=== PATIENT | male | born 1960 | race Caucasian/White ===

== ENCOUNTER 2016-07-02 07:02 | Emergency (ER) | payer BC, OTHER ==
[2016-07-02 07:30] VITALS: BP 168/69
--- NOTE | 2016-07-02 08:15 | UC ---
Abdominal Pain Male HPI - HPI Summary HPI Summary: LLQ pain x 5 days, now radiating to his entire lower abd and RLQ. Pt with hx "diverticulitis" "3-4 times per year", but he doesn't generally seek med attention for it. Pt with hx DM, psoriasis on immunotherapy, and rapid HR treated by Dr. Borja, and multiple kidney stones s/p lithotripsy and stents under care of Dr. Mahoney on HCTZ and allopurinol. 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 Pt did take ibuprofen with minimal relief. - History of Current Complaint Chief Complaint: UCGI Stated Complaint: ABD PAIN Time Seen by Provider: 07/02/16 07:20 Hx Obtained From: Patient Onset/Duration: Gradual Onset, Lasting Days, Still Present Timing: Constant Severity Initially: Moderate Severity Currently: Moderate Pain Intensity: 5 Pain Scale Used: 0-10 Numeric Location: Discrete At: RLQ, Discrete At: LLQ, Suprapubic Radiates: Yes Radiates to: RLQ Character: Aching Aggravating Factor(s):: Movement Alleviating Factor(s): Nothing Associated Signs And Symptoms: Negative: Urinary Symptoms - Risk Factors Testicular Torsion: Negative Cardiac Risk Factors: Hypertension, Smoking, Diabetes - Allergies/Home Medications Allergies/Adverse Reactions: Allergies Allergy/AdvReac Type Severity Reaction Status Date / Time Simvastatin [From Zocor] AdvReac Intermediate Muscle Ache Verified 07/02/16 09: 23 Ezetimibe [From Vytorin] AdvReac Unknown Unknown Verified 07/02/16 09:23 Reaction Details Rosuvastatin [From Crestor] AdvReac Unknown Unknown Verified 07/02/16 09:23 Reaction Details Home Medications: Home Medications Stalera 45 mg SUBCUT SEE INSTRUCTIONS 07/02/16 [History] glipiZIDE TAB* [Glucotrol TAB*] 5 mg PO DAILY 07/02/16 [History Confirmed ] PMH/Surg Hx/FS Hx/Imm Hx Endocrine History Of: Reports: Diabetes - oral meds Cardiovascular History Of: Reports: Cardiac Disorders - rapid heart rate & cautery, Hypertension, Myocardial Infarction GI/ History Of: Reports: Kidney Stones, Diverticulitis - Surgical History Surgical History: Yes Surgery Procedure, Year, and Place: 11/1999 [facility] [place] (right) ureteral stent, cystocscopy, lithotripsy, 02/2001 [facility] [place] (right) ureteral stent, cystocscopy, 2001 [facility] [place] (right) ureteral stent, cystocscopy, lithotripsy, 07/2008 [facility] [place] (right) carpal tunnel & (right) ring trigger finger release - Family History Known Family History: Positive: Other - diverticular disease - Social History Occupation: Employed Full-time Lives: With Family Alcohol Use: Rare Substance Use Type: None Smoking Status (MU): Former Smoker When Did the Patient Quit Smoking/Using Tobacco: 4-5 years ago Review of Systems Constitutional: Negative Skin: Negative Eyes: Negative ENT: Negative Respiratory: Negative Cardiovascular: Negative Gastrointestinal: Abdominal Pain Genitourinary: Negative Motor: Negative Neurovascular: Negative Musculoskeletal: Negative Neurological: Negative Psychological: Negative All Other Systems Reviewed And Are Negative: Yes Physical Exam Triage Information Reviewed: Yes Appearance: Ill-Appearing, Pain Distress, Obese Vital Signs: Initial Vital Signs Temp 99.2 F 07/02/16 07:07 Pulse 116 07/02/16 07:07 Resp 18 07/02/16 07:07 BP 168/69 07/02/16 07:07 tachycardia noted Vital Signs Reviewed: Yes Eyes: Positive: Conjunctiva Clear ENT: Positive: Normal ENT inspection Neck: Positive: Supple Respiratory: Positive: Lungs clear, Normal breath sounds, No respiratory distress Cardiovascular: Positive: No Murmur, Pulses Normal, Brisk Capillary Refill, Tachycardia Abdomen Description: Positive: Soft, Guarding - LLQ. Negative: CVA Tenderness ( R), CVA Tenderness (L), Distended Abd Pain Male Course/Dx - Course Course Of Treatment: pt with LLQ pain and McBurney's point tenderness, hx diverticulitis and multiple kidney stones. Pt needs higher level of care to get definitive diagnosis. - Differential Dx/Clinical Impression Differential Diagnosis/HQI/PQRI: Appendicitis, Constipation, Diverticulitis, Pancreatitis, Ureteral Stone, Urinary Tract Infection Provider Diagnoses: LLQ abd pain Discharge - Discharge Plan Condition: Stable Disposition: AGAINST MEDICAL ADVICE Referrals: Jack Andrews DO [Primary Care Provider] -
== END 2016-07-02 07:51 | disposition left against medical advice (07) ==
LOC: UCCORT 07:02
DX: R10.32 Left lower quadrant pain (principal); R10.31 Right lower quadrant pain; Z87.442 Personal history of urinary calculi; E11.9 Type 2 diabetes mellitus without complications; Z79.84 Long term (current) use of oral hypoglycemic drugs; Z88.8 Allergy status to other drugs, medicaments and biological substances; Z87.891 Personal history of nicotine dependence
CPT/HCPCS: 99212; G0463

== ENCOUNTER 2016-07-02 09:17 | Emergency (ER) | payer OTHER ==
[2016-07-02] MEDS ORDERED: Ketorolac INJ* 30 MG/ML 1 ML VIAL IV ONE (10:19)
[2016-07-02 10:28] VITALS: BP 158/66
[2016-07-02 10:30] LABS: Hematocrit 46 % (42-52); Hemoglobin 14.9 g/dl (14.0-18.0); Mean Corpuscular HGB Conc 33 g/dl (31-36); Mean Corpuscular Hemoglobin 30 pg (27-31); Mean Corpuscular Volume 90 fL (80-94); Mean Platelet Volume 9 um3 (7.4-10.4); Red Blood Count 5.04 10^6/ul (4.0-5.4); Red Cell Distribution Width 15 % (10.5-15); White Blood Count 19.5 10^3/ul (3.5-10.8)
[2016-07-02 10:31] LABS: Add Diff/Slide Review? Slide Review Added; Comments Flag Yes
[2016-07-02 10:37] LABS: Urine Bacteria Absent (Absent); Urine Bilirubin Negative (Negative); Urine Glucose 1+(50 mg/dL) (Negative); Urine Nitrite Negative (Negative)
[2016-07-02 10:43] LABS: BUN/Creatinine Ratio 11.5 (8-20); C Reactive Protein 149.55 mg/L (< 5.00); Calcium 9.5 mg/dL (8.6-10.3); EGFR Non-African American 73.9 (>60); Globulin 3.6 g/dL (2-4); Total Bilirubin 0.4 mg/dL (0.2-1.0); Total Protein 7.6 g/dL (6.4-8.9)
--- NOTE | 2016-07-02 10:54 | RAD ---
CLINICAL HISTORY: Left flank pain COMPARISON: July 30, 2011 TECHNIQUE: Multiple contiguous axial CT scans were obtained of the abdomen and pelvis, without intravenous contrast enhancement. Coronal and sagittal multiplanar reformations are submitted for review. Oral contrast was not administered. FINDINGS: The study is limited by the lack of intravenous contrast. This limits evaluation of the solid organs and vasculature. LUNG BASES: The lung bases are clear. LIVER: The liver is diffusely low in attenuation compared to the spleen. There are no focal hepatic parenchymal masses. The liver is enlarged measuring 22 cm in long axis. BILE DUCTS: There is no intrahepatic or extrahepatic biliary dilatation. GALLBLADDER: The gallbladder is normal, without pericholecystic inflammatory change. PANCREAS: The pancreas is normal, without mass or ductal dilatation. SPLEEN: Normal in size and appearance. UPPER GI TRACT: Evaluation of the gastrointestinal tract is limited by incomplete gastric distention. There is a small sliding hiatal hernia. SMALL BOWEL AND MESENTERY: The small bowel is normal in contour, course, and caliber. There is no obstruction or dilatation. COLON: There is diverticulosis of the descending and sigmoid colon with extensive stranding of the pericolonic fat along the sigmoid colon. There is a questionable low-attenuation lesion measuring 1.1 cm in the wall of the sigmoid colon. ADRENALS: Normal bilaterally. KIDNEYS: The right renal cyst is noted. There is dystrophic calcification of the right kidney. There is no appreciable hydronephrosis or ureteral calculus. BLADDER: The bladder is smooth in contour. PELVIC ORGANS: The prostate is diffusely enlarged. The seminal vesicles are symmetric. AORTA: There is calcific atherosclerotic disease of the abdominal aorta and its branches, without aneurysmal dilatation IVC: Unremarkable LYMPH NODES: There is no lymphadenopathy by size criteria. ABDOMINAL WALL: There is no evidence for abdominal wall hernia. BONES AND SOFT TISSUES: Degenerative changes are noted along the spine OTHER: None IMPRESSION: 1. DIVERTICULITIS. 2. THERE IS A QUESTIONABLE 1.1 CM FLUID COLLECTION OF THE WALL OF THE SIGMOID COLON WHICH MAY REPRESENT A SMALL ABSCESS, THOUGH EVALUATION IS LIMITED BY LACK OF INTRAVENOUS CONTRAST. 3. HEPATOMEGALY WITH FATTY INFILTRATION OF THE LIVER
--- NOTE | 2016-07-04 09:12 | ED ---
Kenny Aguilar Benjamin, scribed for Chico Bravo MD on 07/02/16 at 1018 . Abdominal Pain/Male - HPI Summary HPI Summary: 56yo male comes from [facility], c/o LLQ abd pain radiating diffusely throughout his lower abdomen for 3-4 days. Pt also reports some pain on Lt flank as well. Denies nausea or vomiting. Pt took ibuprofen for pain and states that it does help with his pain somewhat. Hx of diverticulitis. - History of Current Complaint Chief Complaint: EDAbdPain Stated Complaint: LOWER LT ABD PAIN Time Seen by Provider: 07/02/16 10:04 Hx Obtained From: Patient Onset/Duration: Gradual Onset, Lasting Days - 3-4 days, Still Present Timing: Constant Severity Initially: Mild Severity Currently: Mild Pain Intensity: 3 Pain Scale Used: 0-10 Numeric Location: Discrete At: LLQ Radiates: Yes Radiates to: Flank - Left, RLQ Aggravating Factor(s): Nothing Alleviating Factor(s): Nothing Associated Signs And Symptoms: Positive: Negative. Negative: Nausea - Allergies/Home Medications Allergies/Adverse Reactions: Allergies Allergy/AdvReac Type Severity Reaction Status Date / Time Simvastatin [From Zocor] AdvReac Intermediate Muscle Ache Verified 07/02/16 09: 23 Ezetimibe [From Vytorin] AdvReac Unknown Unknown Verified 07/02/16 09:23 Reaction Details Rosuvastatin [From Crestor] AdvReac Unknown Unknown Verified 07/02/16 09:23 Reaction Details PMH/Surg Hx/FS Hx/Imm Hx Endocrine/Hematology History: Reports: Hx Diabetes - oral meds Cardiovascular History: Reports: Hx Angina, Hx Coronary Artery Disease, Hx Hypercholesterolemia, Hx Myocardial Infarction, Other Cardiovascular Problems/ Disorders Denies: Hx Hypertension Respiratory History: Reports: Hx Sleep Apnea - suspect; evaluation 02/2013, Other Respiratory Problems/Disorders - hypoxemia History: Reports: Hx Kidney Stones, Other Problems/Disorders - (right) side ureteral stent Musculoskeletal History: Reports: Other Musculoskeletal History - obesity - Surgical History Surgery Procedure, Year, and Place: 11/1999 [place] (right) ureteral stent, cystocscopy, lithotripsy, 02/2001 [place] (right) ureteral stent, cystocscopy, 2001 [place] (right) ureteral stent, cystocscopy, lithotripsy, 07/2008 [facility] (right) carpal tunnel & (right) ring trigger finger release Infectious Disease History: No Infectious Disease History: Denies: Traveled Outside the [place] in Last 30 Days - Family History Known Family History: Negative: Cardiac Disease, Hypertension, Diabetes - Social History Occupation: Employed Full-time Lives: With Family Alcohol Use: Rare Substance Use Type: Reports: None Smoking Status (MU): Former Smoker Review of Systems Constitutional: Negative Eyes: Negative ENT: Negative Cardiovascular: Negative Respiratory: Negative Positive: Abdominal Pain - diffusely but mostly in LLQ. Negative: Vomiting, Diarrhea, Nausea Genitourinary: Negative Musculoskeletal: Negative Skin: Negative Neurological: Negative Psychological: Normal All Other Systems Reviewed And Are Negative: Yes Physical Exam Vital Signs On Initial Exam: Initial Vitals Temp Pulse Resp BP Pulse Ox 99.0 F 108 16 139/83 96 07/02/16 09:23 07/02/16 09:23 07/02/16 09:23 07/02/16 09:23 07/02/16 09:23 Appearance: Positive: Well-Appearing, No Pain Distress, Obese Skin: Positive: Warm, Skin Color Reflects Adequate Perfusion, Dry Head/Face: Positive: Normal Head/Face Inspection Eyes: Positive: Normal ENT: Positive: Normal ENT inspection Neck: Positive: Supple, Nontender Respiratory/Lung Sounds: Positive: Clear to Auscultation, Breath Sounds Present Cardiovascular: Positive: RRR Abdomen Description: Positive: Soft, Other: - diffuse abdominal tenderness but mostly in LLQ. Bowel Sounds: Positive: Present Musculoskeletal: Positive: Normal, Strength/ROM Intact Neurological: Positive: Normal, Sensory/Motor Intact, Alert, Oriented to Person Place, Time, CN Intact II-III Psychiatric: Positive: Affect/Mood Appropriate Diagnostics - Vital Signs Vital Signs Temp Pulse Resp BP Pulse Ox 07/02/16 09:23 99.0 F 108 16 139/83 96 - Laboratory Lab Results: Lab Results 07/02/16 07/02/16 07/02/16 Range/Units 09:50 09:50 09:50 WBC 19.5 H (3.5-10.8) 10^3/ul RBC 5.04 (4.0-5.4) 10^6/ul Hgb 14.9 (14.0-18.0) g/dl Hct 46 (42-52) % MCV 90 (80-94) fL MCH 30 (27-31) pg MCHC 33 (31-36) g/dl RDW 15 (10.5-15) % Plt Count 214 (150-450) 10^3/ul MPV 9 (7.4-10.4) um3 Neut % (Auto) 73.3 (38-83) % Lymph % (Auto) 14.8 L (25-47) % [place] % (Auto) 10.2 H (1-9) % Eos % (Auto) 1.0 (0-6) % Baso % (Auto) 0.7 (0-2) % Absolute Neuts (auto) 14.3 H (1.5-7.7) 10^3/ul Absolute Lymphs (auto) 2.9 (1.0-4.8) 10^3/ul Absolute Monos (auto) 2.0 H (0-0.8) 10^3/ul Absolute Eos (auto) 0.2 (0-0.6) 10^3/ul Absolute Basos (auto) 0.1 (0-0.2) 10^3/ul Absolute Nucleated RBC 0.05 10^3/ul Nucleated RBC % 0.2 Sodium 133 (133-145) mmol/L Potassium 4.0 (3.5-5.0) mmol/L Chloride 100 L (101-111) mmol/L Carbon Dioxide 24 (22-32) mmol/L Anion Gap 9 (2-11) mmol/L BUN 12 (6-24) mg/dL Creatinine 1.04 (0.67-1.17) mg/dL Est GFR ( Amer) 95.0 (>60) Est GFR (Non-Af Amer) 73.9 (>60) BUN/Creatinine Ratio 11.5 (8-20) Glucose 205 H (70-100) mg/dL Lactic Acid 2.1 H* (0.5-2.0) mmol/L Calcium 9.5 (8.6-10.3) mg/dL Total Bilirubin 0.40 (0.2-1.0) mg/dL AST 14 (13-39) U/L ALT 14 (7-52) U/L Alkaline Phosphatase 62 (34-104) U/L C-Reactive Protein 149.55 H (< 5.00) mg/L Total Protein 7.6 (6.4-8.9) g/dL Albumin 4.0 (3.2-5.2) g/dL Globulin 3.6 (2-4) g/dL Albumin/Globulin Ratio 1.1 (1-3) Lipase 34 (11.0-82.0) U/L Urine Color Urine Appearance Urine pH (5-9) Ur Specific [place] (1.010-1.030) Urine Protein (Negative) Urine Ketones (Negative) Urine Blood (Negative) Urine Nitrate (Negative) Urine Bilirubin (Negative) Urine Urobilinogen (Negative) Ur Leukocyte Esterase (Negative) Urine WBC (Auto) (Absent) Urine RBC (Auto) (Absent) Ur Squamous Epith Cells (Absent) Urine Bacteria (Absent) Urine Glucose (Negative) 07/02/16 Range/Units 10:10 WBC (3.5-10.8) 10^3/ul RBC (4.0-5.4) 10^6/ul Hgb (14.0-18.0) g/dl Hct (42-52) % MCV (80-94) fL MCH (27-31) pg MCHC (31-36) g/dl RDW (10.5-15) % Plt Count (150-450) 10^3/ul MPV (7.4-10.4) um3 Neut % (Auto) (38-83) % Lymph % (Auto) (25-47) % [place] % (Auto) (1-9) % Eos % (Auto) (0-6) % Baso % (Auto) (0-2) % Absolute Neuts (auto) (1.5-7.7) 10^3/ul Absolute Lymphs (auto) (1.0-4.8) 10^3/ul Absolute Monos (auto) (0-0.8) 10^3/ul Absolute Eos (auto) (0-0.6) 10^3/ul Absolute Basos (auto) (0-0.2) 10^3/ul Absolute Nucleated RBC 10^3/ul Nucleated RBC % Sodium (133-145) mmol/L Potassium (3.5-5.0) mmol/L Chloride (101-111) mmol/L Carbon Dioxide (22-32) mmol/L Anion Gap (2-11) mmol/L BUN (6-24) mg/dL Creatinine (0.67-1.17) mg/dL Est GFR ( Amer) (>60) Est GFR (Non-Af Amer) (>60) BUN/Creatinine Ratio (8-20) Glucose (70-100) mg/dL Lactic Acid (0.5-2.0) mmol/L Calcium (8.6-10.3) mg/dL Total Bilirubin (0.2-1.0) mg/dL AST (13-39) U/L ALT (7-52) U/L Alkaline Phosphatase (34-104) U/L C-Reactive Protein (< 5.00) mg/L Total Protein (6.4-8.9) g/dL Albumin (3.2-5.2) g/dL Globulin (2-4) g/dL Albumin/Globulin Ratio (1-3) Lipase (11.0-82.0) U/L Urine Color Yellow Urine Appearance Clear Urine pH 5.0 (5-9) Ur Specific [place] 1.011 (1.010-1.030) Urine Protein 1+(30 mg/dl) H (Negative) Urine Ketones Negative (Negative) Urine Blood 1+ H (Negative) Urine Nitrate Negative (Negative) Urine Bilirubin Negative (Negative) Urine Urobilinogen Negative (Negative) Ur Leukocyte Esterase 1+ H (Negative) Urine WBC (Auto) 1+(6-10/hpf) H (Absent) Urine RBC (Auto) 1+(3-5/hpf) H (Absent) Ur Squamous Epith Cells Present H (Absent) Urine Bacteria Absent (Absent) Urine Glucose 1+(50 mg/dl) H (Negative) Result Diagrams: 07/02/16 09:50 07/02/16 09:50 Lab Statement: Any lab studies that have been ordered have been reviewed, and results considered in the medical decision making process. - CT CT ABD/PELV WO CT Interpretation: Positive (See Comments) - IMPRESSION: 1. DIVERTICULITIS. 2. THERE IS A QUESTIONABLE 1.1 CM FLUID COLLECTION OF THE WALL OF THE SIGMOID COLON WHICH MAY REPRESENT A SMALL ABSCESS, THOUGH EVALUATION IS LIMITED BY LACK OF INTRAVENOUS CONTRAST. 3. HEPATOMEGALY WITH FATTY INFILTRATION OF THE LIVER CT Interpretation Completed By: Radiologist Abdominal Pain Fem Course/Dx - Course Course Of Treatment: Mr. Christianson presented with a pain in his LLQ that he associates with diverticulitis and an additional pain more midline in his low abd that is new over the last couple of days. He was Dx'd with diverticulitis by CT several years ago and then believes he has had flair-ups when he gets the former pain. These have been self-limiting in the past but this is getting worse and he has developed the new pain. Ct. Did show diverticulits with the possibility of a small abscess. He will be treated with antibiotics and will need close F/U to make sure he does not develope an abscess. He was offered IV antibiotics here but is concerned about his deductable. - Diagnoses Provider Diagnoses: Diverticulitis - Provider Notifications Discussed Care Of Patient With: Dr. Alvares (Gastro) @1115. Discharge - Discharge Plan Condition: Stable Disposition: HOME Prescriptions: Ciprofloxacin TAB* [Cipro Tab*] 500 mg PO BID #20 tab Metronidazole [Flagyl 500 MG TAB] 500 mg PO TID #30 tab Patient Education Materials: Diverticulitis (ED) Referrals: Jack Andrews DO [Primary Care Provider] - The documentation as recorded by the Kenny henry Benjamin accurately reflects the service I personally performed and the decisions made by me, Chico Bravo MD.
== END 2016-07-02 12:20 | disposition home or self-care (01) ==
LOC: ED 09:17
DX: R10.32 Left lower quadrant pain (principal); Z87.891 Personal history of nicotine dependence; K57.92 Diverticulitis of intestine, part unspecified, without perforation or abscess without bleeding
CPT/HCPCS: 36415; 74176; 80053; 81003; 81015; 83605; 83690; 85025; 86140; 87086; 96374; 99283; J1885

== ENCOUNTER 2018-12-23 16:37 | Emergency (ER) | payer OTHER ==
[2018-12-23 17:06] VITALS: BP 125/71
--- NOTE | 2018-12-23 17:18 | UC ---
Skin Complaint HPI - HPI Summary HPI Summary: Noted raised areas on the left elbow x 3 days ago, at [facility] same time as onset of medial elbow pain. Initial thought, because he had been working outdoors, was that he had been bitten by something. 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 Onset of pain and recognition of the bites occurred at the same time, but the pain is limited to the medial elbow area. Exam shows 4 raised nodules, likely bites, but only 2 are raised and have small necrotic centers (about 2 mm) No fever, malaise, headache, nausea or vomiting. - History of Current Complaint Chief Complaint: UCSkin Time Seen by Provider: 12/23/18 17:08 Stated Complaint: LEFT ELBOW SKIN CONCERN Hx Obtained From: Patient, Family/Insulation Estimator - here with his Onset/Duration: Sudden Onset, Lasting Days - 2 or 3 (he thinks 3, his believes 2) Skin Exposure Onset/Duration: Days Ago - 2-3 Onset Severity: Moderate Current Severity: Moderate Pain Intensity: 5 Location: Discrete - left elbow Aggravating Factor(s): Touch Alleviating Factor(s): Nothing Associated Signs & Symptoms: Positive: Tenderness - Allergy/Home Medications Allergies/Adverse Reactions: Allergies Allergy/AdvReac Type Severity Reaction Status Date / Time ezetimibe [From Vytorin] Allergy Unknown Verified 12/23/18 16:55 Reaction Details rosuvastatin [From Crestor] Allergy Unknown Verified 12/23/18 16:55 Reaction Details simvastatin Allergy Muscle Ache Verified 12/23/18 16:55 Home Medications: Home Medications metFORMIN* [Glucophage 1000 MG TAB *] 500 mg PO 0800 12/23/18 [History Confirmed 12/23/18] PMH/Surg Hx/FS Hx/Imm Hx Endocrine History: Diabetes GI/ History: Kidney Stones, Other - normal renal function by report. - Surgical History Surgical History: Yes Surgery Procedure, Year, and Place[place] [facility] [place], cystocscopy, lithotripsy[place] [facility] [place], cystocscopy, [place] [facility] [place] ure[place] stent, cystocscopy, lithotripsy, 07[place] [facility] [place] carpal tunnel & (right) ring trigger finger release - Family History Known Family History: Positive: Non-Contributory Negative: Cardiac Disease, Hypertension, Diabetes - Social History Occupation: Employed Full-time Alcohol Use: Rare Substance Use Type: None Smoking Status (MU): Former Smoker When Did the Patient Quit Smoking/Using Tobacco: 4-5 years ago Review of Systems All Other Systems Reviewed And Are Negative: Yes Constitutional: Positive: Negative Skin: Positive: Rash Eyes: Positive: Negative ENT: Positive: Negative Respiratory: Positive: Negative Cardiovascular: Positive: Negative Gastrointestinal: Positive: Negative Motor: Positive: Negative. Negative: Decreased ROM, Weakness Musculoskeletal: Positive: Arthralgia Neurological: Negative: Headache Physical Exam Triage Information Reviewed: Yes Appearance: Well-Appearing, Pain Distress - minimal, Obese Vital Signs: Initial Vital Signs Temp 98.5 F 12/23/18 17:01 Pulse 98 12/23/18 17:01 Resp 15 12/23/18 17:01 BP 125/71 12/23/18 17:01 Pulse Ox 96 12/23/18 17:01 Eyes: Positive: Conjunctiva Clear ENT: Positive: Pharynx normal, TMs normal Respiratory: Positive: Lungs clear, Normal breath sounds Cardiovascular: Positive: RRR, No Murmur Musculoskeletal Exam: Other - tenderness medial epicondyle of the left elbow Musculoskeletal: Positive: Strength Intact, ROM Intact Neurological Exam: Normal Neurological: Positive: Alert, Muscle Tone Normal Skin Exam: Other - 2 raised approximately 12 mm nodules superior to the olecranon, with 1-2mm necrotic center with margin of erythema. Faint erythema 15 x 9 cm around this area. 2 smaller 3 mm raised nodues superior to these. No lymphangitis. No axillary adenopathy Course/Dx - Course Course Of Treatment: cephalexin for cellulitis, continue ibuprofen for pain, monitor for progression of cellulitis with follow up if needed. - Differential Diagnoses - Skin Complaint Differential Diagnoses: Cellulitis, Other - bites - Diagnoses Provider Diagnosis: Cellulitis of left elbow, Insect bites Discharge - Sign-Out/Discharge Documenting (check all that apply): Patient Departure All imaging exams completed and their final reports reviewed: No Studies - Discharge Plan Condition: Stable Disposition: HOME Prescriptions: cephALEXin [Keflex] 500 mg PO QID #28 capsule Patient Education Materials: Cellulitis (ED) Referrals: Jack Andrews DO [Primary Care Provider] - Additional Instructions: The nodules on the left elbow are consistent with bites with an associated cellulitis. Begin cephalexin today, taking 2 capsules when you pick remover the prescription followed by one more capsule in 4 hours. Tomorrow, take one 4 times daily. Ensure that you take 4 capsules per day: in this case, if you miss a dose, double up on the next dose. Monitor for increasing pain, fever or spread of the redness around the elbow. If you have increasing redness, please return for an assessment or ensure that you are seen by Dr. Andrews. Keep the bites covered with topical antibiotic ointment until the wounds heal. - Billing Disposition and Condition Condition: STABLE Disposition: Home
== END 2018-12-23 17:37 | disposition home or self-care (01) ==
LOC: UCCORT 16:37
DX: L03.114 Cellulitis of left upper limb (principal); W57.XXXA Bitten or stung by nonvenomous insect and other nonvenomous arthropods, initial encounter; Y93.H9 Activity, other involving exterior property and land maintenance, building and construction; E11.9 Type 2 diabetes mellitus without complications; Z79.4 Long term (current) use of insulin; Z87.891 Personal history of nicotine dependence
CPT/HCPCS: 99212; G0463

== ENCOUNTER 2020-07-09 00:44 | Inpatient (IN) ==
[2020-07-09] MEDS: NS 0.9% 1000 ml BAG 1,000 ML IV ONE ×2 (01:56→03:29)
[2020-07-09 02:02] LABS: Hematocrit 44 % (42-52); Hemoglobin 14.6 g/dL (14.0-18.0); Mean Corpuscular HGB Conc 33 g/dL (31-36); Mean Corpuscular Hemoglobin 32 pg (27-31); Mean Corpuscular Volume 95 fL (80-94); Mean Platelet Volume 8.3 fL (7.4-10.4); Platelet Count 262 10^3/uL (150-450); Red Blood Count 4.59 10^6 /uL (4.18-5.48); Red Cell Distribution Width 14 % (10-15); White Blood Count 25.1 10^3/uL (3.5-10.8)
[2020-07-09 02:07] LABS: INR 0.96 (0.82-1.09)
[2020-07-09 02:17] LABS: Albumin/Globulin Ratio 1.3 (1-3); BUN/Creatinine Ratio 18.9 (8-20); C Reactive Protein 2.31 mg/L (<8.01); Calcium 9.1 mg/dL (8.6-10.3); EGFR African American 81.8 (>60); EGFR Non-African American 67.6 (>60); Globulin 3.2 g/dL (2-4); Potassium 4.5 mmol/L (3.5-5.0); Total Bilirubin 0.3 mg/dL (0.2-1.0); Total Protein 7.2 g/dL (6.4-8.9)
[2020-07-09 02:47] LABS: ABS Basophils 0.1 10^3/ul (0-0.2); ABS Eosinophils 0.1 10^3/ul (0-0.6); ABS Lymphocytes 2.9 10^3/ul (1.0-4.8); ABS Monocytes 1.1 10^3/ul (0-0.8); ABS Neutrophils 20.9 10^3/ul (1.5-7.7); Eosinophil % 0.4 %; Lymphocyte % 11.5 %
[2020-07-09] MEDS ORDERED: Iodixanol (CONTRAST) 320 MG/ML 100 ML SDV IV ONE (03:06)
[2020-07-09] MEDS ORDERED: Ondansetron 4 mg VIAL 2 MG/ML 2 ml VIAL IV PRN (05:42)
[2020-07-09] MEDS ORDERED: Piperacillin/Tazobac ADVAN 3.375 GM in NS 0.9% 100 ml BAG 100 ML IV ONE (05:48)
[2020-07-09] MEDS ORDERED: Dextrose 50% Syringe 50 ml 25 GM/50 ML SYRINGE IV PUSH PRN (05:48)
[2020-07-09] MEDS ORDERED: Zosyn per Pharmacy NOTE FOLLOW UP SCH (06:00)
[2020-07-09 06:10] LABS: Hematocrit 38 % (42-52); Hemoglobin 12.9 g/dL (14.0-18.0); Mean Corpuscular HGB Conc 34 g/dL (31-36); Mean Corpuscular Hemoglobin 32 pg (27-31); Mean Corpuscular Volume 95 fL (80-94); Mean Platelet Volume 8.3 fL (7.4-10.4); Platelet Count 227 10^3/uL (150-450); Red Blood Count 3.99 10^6 /uL (4.18-5.48); Red Cell Distribution Width 14 % (10-15); White Blood Count 18.7 10^3/uL (3.5-10.8)
[2020-07-09 06:47] LABS: ABS Basophils 0.2 10^3/ul (0-0.2); ABS Eosinophils 0.2 10^3/ul (0-0.6); ABS Lymphocytes 5.1 10^3/ul (1.0-4.8); ABS Monocytes 0.9 10^3/ul (0-0.8); ABS Neutrophils 12.5 10^3/ul (1.5-7.7); Eosinophil % 0.8 %; Lymphocyte % 27.1 %
[2020-07-09] MEDS: Pantoprazole VIAL 40 MG VIAL IV SCH (09:33)
[2020-07-09] MEDS: ZOSYN 3.375 GM Q8H per EXTENDED INFUSION IV SCH ×2 (09:34→17:49)
[2020-07-09 12:14] LABS: Hematocrit 37 % (42-52); Hemoglobin 12.3 g/dL (14.0-18.0)
[2020-07-09] MEDS: NS 0.9% 1000 ml BAG 1,000 ML IV SCH (12:58)
[2020-07-09 16:44] LABS: Urine Appearance Clear; Urine Bilirubin Negative (Negative); Urine Blood Negative (Negative); Urine Color Yellow; Urine Glucose Negative (Negative); Urine Ketones Negative (Negative); Urine Nitrite Negative (Negative); Urine Protein Negative (Negative); Urine Specific Gravity 1.027 (1.010-1.030); Urine Urobilinogen Negative (Negative)
[2020-07-09 17:15] LABS: Urine Bacteria Absent (Absent); Urine Red Blood Cell Absent (Absent); Urine Squamous Epithelial Cell Present (Absent); Urine White Blood Cell Trace(0-5/hpf) (Absent)
[2020-07-09 18:26] LABS: ABS Basophils 0.1 10^3/ul (0-0.2); ABS Eosinophils 0.3 10^3/ul (0-0.6); ABS Lymphocytes 4.7 10^3/ul (1.0-4.8); ABS Monocytes 0.8 10^3/ul (0-0.8); ABS Neutrophils 5.8 10^3/ul (1.5-7.7); Eosinophil % 2.5 %; Hematocrit 36 % (42-52); Lymphocyte % 39.9 %; Mean Corpuscular HGB Conc 33 g/dL (31-36); Mean Corpuscular Hemoglobin 31 pg (27-31); Mean Corpuscular Volume 95 fL (80-94); Mean Platelet Volume 8.3 fL (7.4-10.4); Platelet Count 215 10^3/uL (150-450); Red Cell Distribution Width 14 % (10-15); White Blood Count 11.7 10^3/uL (3.5-10.8)
[2020-07-09 18:34] LABS: BUN/Creatinine Ratio 15.6 (8-20); EGFR African American 96.7 (>60); EGFR Non-African American 79.9 (>60); Potassium 4.4 mmol/L (3.5-5.0)
[2020-07-10] MEDS: ZOSYN 3.375 GM Q8H per EXTENDED INFUSION IV SCH ×2 (02:15→10:00)
[2020-07-10 05:56] LABS: ABS Basophils 0.1 10^3/ul (0-0.2); ABS Eosinophils 0.3 10^3/ul (0-0.6); Eosinophil % 2.7 %; Hematocrit 36 % (42-52); Mean Corpuscular HGB Conc 34 g/dL (31-36); Mean Corpuscular Hemoglobin 32 pg (27-31); Mean Corpuscular Volume 94 fL (80-94); Mean Platelet Volume 8.3 fL (7.4-10.4); Platelet Count 198 10^3/uL (150-450); Red Blood Count 3.81 10^6 /uL (4.18-5.48); Red Cell Distribution Width 14 % (10-15); White Blood Count 11.4 10^3/uL (3.5-10.8)
[2020-07-10 06:09] LABS: Calcium 8.3 mg/dL (8.6-10.3); Potassium 4.3 mmol/L (3.5-5.0)
[2020-07-10 06:14] LABS: BUN/Creatinine Ratio 15.5 (8-20); EGFR African American 95.5 (>60); EGFR Non-African American 78.9 (>60)
[2020-07-10] MEDS: Pantoprazole VIAL 40 MG VIAL IV SCH (08:23)
[2020-07-10] MEDS: NS 0.9% 1000 ml BAG 1,000 ML IV SCH (10:00)
[2020-07-10 12:06] VITALS: BP 126/74
== END 2020-07-10 13:45 | disposition home or self-care (01) | DRG 378 ==
LOC: ED 00:44 → MEDTELE 07:16
PROVIDERS: ADMIT Internal Medicine; ATTEND Internal Medicine